=== PATIENT | male | born 1995 | race Caucasian/White ===

== ENCOUNTER 2024-03-27 10:32 | Outpatient (CLI) | payer BC, SELFPAY | END 2024-03-27 10:33 | disposition home or self-care (01) | LOC: LKVREF 10:34 | PROVIDERS: PCP Family Medicine; Visit Provider Family Medicine | DX: Z00.00 Encounter for general adult medical examination without abnormal findings (principal); M25.561 Pain in right knee; M25.562 Pain in left knee; Z76.89 Persons encountering health services in other specified circumstances | CPT/HCPCS: 80048; 80061 ==